=== PATIENT | female | born 1970 | race Caucasian/White ===

== ENCOUNTER 2020-06-25 00:17 | Outpatient (CLI) | payer BC, SELFPAY ==
[2020-06-25 17:08] LABS: SARS-CoV-2 RNA PCR Negative
== END 2020-06-25 00:18 | disposition home or self-care (01) ==
LOC: ANHCOVIDDT 00:17
PROVIDERS: PCP Nurse Practitioner Family; Visit Provider Obstetrics & Gynecology
DX: Z01.812 Encounter for preprocedural laboratory examination (principal); Z11.59 Encounter for screening for other viral diseases
CPT/HCPCS: 87635; C9803; U0003

== ENCOUNTER 2020-06-28 01:04 | Day surgery (SDC) | payer BC, SELFPAY ==
[2020-06-17 11:38] VITALS: BMI 30.5
--- NOTE | 2020-06-25 16:36 | PM.IMHP ---
H&P: HPI History of Present Illness Date/Time: 06/25/20 16:36 Chief complaint: simple endometrial hyperplasia, menomettrohaghia Narrative: Jazz Torres is a 50 year old female with endometrial hyperplasia originally diagnosed in 2019 but never treated other than 10 days of provera one time. She had repeat EMBX showing persistent endometrial hyperplasia and has had heavy irregular bleeding off and on Review of Systems Review of Systems: All systems reviewed & are unremarkable except as noted in HPI and below PMFSH Past Medical History Medical History Bicornate uterus Breast cancer Menopausal state Normal vaginal delivery of third Surgical History Surgical History H/O breast surgery H/O tubal ligation Family History Family History Father Heart disease Acute myocardial infarction Social History Social History Smoking status: Never smoker Alcohol intake: current Drinks per week: 10 Substance use: never Spiritual care concerns: No Meds Home Medications and Allergies Home Medications Medication Instructions Recorded Confirmed Type lorazepam 0.5 mg tablet 0.5 mg PO DAILY PRN 05/13/20 06/17/20 History lubiprostone 24 mcg capsule 24 mcg PO DAILY 05/13/20 06/17/20 History sertraline 100 mg tablet 100 mg PO DAILY 05/13/20 06/17/20 History ergocalciferol (vitamin D2) 1,250 mcg PO WEEKLY 06/17/20 06/17/20 History [Vitamin D2] Allergies Allergy/AdvReac Type Severity Reaction Status Date / Time codeine Allergy Intermediate hives Verified 06/17/20 11:38 Penicillins Allergy Intermediate Hives Verified 06/17/20 11:38 Exam Const: General: no acute distress Resp: Auscultation: clear to auscultation bilaterally Cardio: Rate: regular rate Rhythm: regular rhythm GI: Inspection: non-distended GI Palp: Yes Soft to palpation and No Tenderness to palpation present (GI) : Other: Uterus normal size, nontender, mobile smooth. Adnexa nontender with no palpable masses Psych: Mental Status: mental status grossly normal Assessment and Plan Assessment and plan (1) Endometrial hyperplasia without atypia: Code(s): N85.00 - Endometrial hyperplasia, unspecified Status: Acute Assessment and Plan: She opted and signed consent for TLH/BSO after R/B/C/A discussed. She expressed understanding and wishes to proceed (2) Menorrhagia: Code(s): N92.0 - Excessive and frequent menstruation with regular cycle Status: Acute
[2020-06-28] VITALS (11 sets, daily range): BP systolic 119–140; BP diastolic 74–90; PULSE 53–95; RESP 11–18; TEMP 36.1–36.7; O2SAT 95–100
[2020-06-28] MEDS: LACTATED RINGERS 1,000 ML 30 ML IV CONT ×2 (10:27→14:38)
[2020-06-28] MEDS: ACETAMINOPHEN 500 MG TABLET 1000 MG PO (10:27)
[2020-06-28] MEDS: KETOROLAC 15 MG/ML VIAL (*BKC) IV PUSH (10:29)
--- NOTE | 2020-06-28 11:02 | WPDANESEPPF ---
Anes - Initial Pre Proc Eval Procedure: Operation Date: 06/28/20 12:00 Proposed Procedures p Total Laparoscopic Hysterectomy, Bilateral Salpingo-Oophorectomy - Johanne Head MD Date/Time: 06/28/20 11:02 Surgeon: Johanne Head MD Pre Op Diagnosis: simple endometrial hyperplasia, menomettrohaghia Patient Data Age: 50 Gender: F Height: 5 ft 7 in Weight: 88.7 kg Last Vital Signs Temp 97 F L 06/28/20 10:12 Pulse 79 06/28/20 10:12 Resp 16 06/28/20 10:12 BP 140/86 06/28/20 10:12 Pulse Ox 99 06/28/20 10:12 Allergies Allergy/AdvReac Type Severity Reaction Status Date / Time codeine Allergy Intermediate hives Verified 06/28/20 10:06 Penicillins Allergy Intermediate Hives Verified 06/28/20 10:06 Home Medications Medication Instructions Recorded Confirmed Type lorazepam 0.5 mg tablet 0.5 mg PO DAILY PRN 05/13/20 06/28/20 History lubiprostone 24 mcg capsule 24 mcg PO DAILY 05/13/20 06/28/20 History sertraline 100 mg tablet 100 mg PO DAILY 05/13/20 06/28/20 History ergocalciferol (vitamin D2) 1,250 mcg PO WEEKLY 06/17/20 06/28/20 History [Vitamin D2] Patient hx anesthesia problems: none Family hx anesthesia problems: none PMFSH Past Medical History Medical History Bicornate uterus Breast cancer Menopausal state Normal vaginal delivery of third Surgical History Surgical History H/O breast surgery H/O tubal ligation Family History Family History Father Heart disease Acute myocardial infarction Social History Social History Smoking status: Never smoker Alcohol intake: current Drinks per week: 7 Substance use: never Spiritual care concerns: No Anes - Eval Final PreProcedure Day of Procedure 06/28/20 11:02 Patient weight: overweight Heart: regular rate and rhythm Lungs: clear to auscultation Airway: Mallampati scale class II Neurological: alert and oriented Last oral intake: >/= 8 hours ASA classification: III Emergent: no Anesthetic plan: proceed Anesthesia type and monitoring: general ETT and standard monitoring Informed Consent: The patient's anesthetic plan and its attendant risks and benefits were discussed with the patient/family/POA. Questions were solicited and answers provided to the satisfaction of the patient/family/POA.
--- NOTE | 2020-06-28 11:53 | WPDHPUPDATE1 ---
History and Physical Update Update Date/Time: 06/28/20 11:53 History and Physical has been reviewed, including an updated exam of the patient. There are NO changes in the patient's condition. Risks, benefits, and alternatives have been discussed and questions answered. Patient agrees to proceed with procedure.
[2020-06-28] MEDS: CLINDAMYCIN 900 MG/NS 50 ML 900 MG/50 ML PIGGYBACK 50 MG IVPB (12:06)
[2020-06-28] MEDS: GENTAMICIN SULFATE INJ 360 MG in DEXTROSE 5% 100 ML 100 MG IVPB (12:19)
[2020-06-28] MEDS: BUPIVACAINE/EPINEPHRINE 0.5% 30 ML VIAL INFILTRATE (13:27)
[2020-06-28] MEDS: fentaNYL CITRATE INJ (*CRX) 100 MCG/2 ML VIAL 25 MCG IV PUSH ×4 (14:43→15:09)
--- NOTE | 2020-06-28 14:43 | PM.PROC ---
Procedure Note - Detailed Date of procedure: 06/28/20 Pre-op diagnosis: simple endometrial hyperplasia, menomettrohaghia simple endometrial hyperplasia, menometrorrhagia Post-op diagnosis: same Procedure performed: TLH/BSO Description of procedure: She was taken to the operating room where general anesthesia was obtained. She was prepared and draped in a normal sterile fashion in dorsal lithotomy position. Marcaine was injected infraumbilically and a 5 mm skin incision was made in the infraumbilical fold with a scalpel. 5 mm non bladed trocar was placed with the camera in the trocar under direct visualization. Insufflation was begun and she was placed in Trendelenburg 10 mm trocar was then placed in the right lower quadrant under direct visualization. A 5 mm trocar specimen left lower quadrant under direct visualization. Inspection of pelvis revealed the findings as noted above. The right fallopian tube was grasped for traction and the right infundibulopelvic ligament was grasped coagulated and transected using the Harmonic scalpel. Medial salpinx was serially clamped and transected. The right round ligament was coagulated and transected. The bladder flap was then created from the right side. Attention was then turned to left where the left infundibulopelvic ligament was grasped coagulated and transected. The mesosalpinx was serially clamped and transected as was the left round ligament. Bladder flap was then created from left side meeting flap from the right side. Bladder flap was pushed down further with the laparoscopic Kittner. The left uterine artery was skeletonized clamped coagulated and transected. There was brisk bleeding for a few seconds from the left uterine artery but it was controlled easily using the Harmonic scalpel. Another couple bites were taken down the broad ligament until the level of the uterosacral ligament had been reached. The right uterine artery was then skeletonized clamped coagulated and transected. Another few bites were taken down the broad ligament until the level of the uterosacral ligament had been reached. A sponge stick was placed in the vagina and pressed against the anterior cul-de-sac. The Harmonic scalpel was used to make an anterior colpotomy incision against sponge stick. The vagina was then circumferentially incised hugging against cervix until the entire cervix and uterus were free from the surrounding vaginal tissue. Attention was then turned to the vagina where a speculum was placed. The cervix was grasped with a single-tooth tenaculum. The uterus, cervix, tubes, and ovaries were all brought easily through the vaginal incision. A moist blue towel was placed in the vagina to help hold the pneumoperitoneum. Attention was then turned back to the abdomen. The vaginal cuff was closed using 0 Vicryl interrupted sutures placed laparoscopically. A total of 4 sutures were placed for reapproximation. The pelvis was copiously irrigated. All operative sites were found to be hemostatic. The right lower quadrant trocar was removed. The Vince-Mary device along with an 0 Vicryl was used to close the fascia of the right lower quadrant incision. The pneumoperitoneum was allowed to escape. All trocars were removed. All skin incisions were closed using 4 0 Monocryl in subcuticular fashion. She tolerated the procedure well. Sponge, lap, needle, and instrument counts were correct x2. She was taken to the recovery room in stable condition. Anesthesia: GETA Surgeon: Johanne Head MD Estimated blood loss (mL): 100 Drains: Yes (Nam) Packing: No Pathology: yes Complications: No immediate complications Condition: stable Disposition: PACU Findings: Normal uterus, tubes, ovaries, liver. No pelvic adhesions. Appendix and gall bladder not visualized
--- NOTE | 2020-06-28 14:48 | SUR.OPER ---
EBL:CC< URINE:
--- NOTE | 2020-06-28 15:32 | PC.NURSE ---
Patient arrived to room 289 by stretcher at 1532 from surgery department. Patient oriented to room and admission packet given. Discussed plan of care. Patient verbalized understanding.
[2020-06-28] MEDS: DOCUSATE SODIUM 100 MG CAPSULE PO (16:29)
[2020-06-28] MEDS: HYDROcodone/acetaminophen (*CRX) 5-325 MG TABLET 1 TAB PO ×3 (16:29→23:06)
[2020-06-28] MEDS: SIMETHICONE 80 MG TAB.CHEW PO ×2 (18:56→23:07)
[2020-06-28] MEDS: IBUPROFEN 600 MG TABLET PO (18:56)
[2020-06-28] MEDS: ENOXAPARIN 40 MG/0.4 ML SYRINGE SUB-Q (19:44)
[2020-06-29] MEDS: SIMETHICONE 80 MG TAB.CHEW PO ×3 (01:05→08:36)
[2020-06-29] MEDS: IBUPROFEN 600 MG TABLET PO (01:05)
[2020-06-29] MEDS: HYDROcodone/acetaminophen (*CRX) 5-325 MG TABLET 1 TAB PO ×2 (03:47→06:47)
[2020-06-29 03:54] VITALS: BP 144/74; PULSE 74; RESP 16; TEMP 36.5
[2020-06-29 05:12] LABS: Basophils Percent Auto 0.1 % (0.2-1.2); Hematocrit 33.9 % (37.0-47.0); Hemoglobin 10.8 g/dL (12.0-15.0); Immature Granulocyte Absolute 0.04 K/mm3 (0.00-0.031); Immature Granulocyte Percent A 0.5 % (0-0.5); Lymphocytes Absolute Auto 0.99 K/mm3 (0.9-3.2); Lymphocytes Percent Auto 11.4 % (18.3-44.2); Mean Corpuscular HGB Conc 31.9 g/dl (32-36); Mean Corpuscular Hemoglobin 27.8 pg (26-34); Mean Corpuscular Volume 87.1 fl (80-100); Mean Platelet Volume 10.1 fl (7.4-10.4); Monocytes Absolute Auto 0.4 K/mm3 (0.1-0.6); Monocytes Percent Auto 4.6 % (2.6-8.5); Neutrophils Absolute Auto 7.2 K/mm3 (1.3-6.7); Neutrophils Percent Auto 83.4 % (45.5-73.1); Platelet Count Result 256 k/mm3 (150-375); Red Blood Count 3.89 M/mm3 (4.2-5.4); Red Cell Distribution Width 14.1 % (11.5-14.5); White Blood Count 8.7 K/mm3 (4.5-10.0)
[2020-06-29 05:22] LABS: Anion Gap 3 mmol/L (8-16); Blood Urea Nitrogen 7 mg/dL (7-17); Calcium 8.6 mg/dL (8.4-10.2); Carbon Dioxide 25 mmol/L (22-30); Chloride 107 mmol/L (98-107); Estimated CRCL calculation 93 ml/min; Estimated Glomerular Filt Rate > 60; Glucose 135 mg/dL (65-105); Potassium 3.5 mmol/L (3.4-5.0); Sodium 135 mmol/L (137-145)
[2020-06-29 06:50] VITALS: BP 132/81; PULSE 71; RESP 16; TEMP 36.9
--- NOTE | 2020-06-29 07:44 | PM.GYNPNOP ---
CONTROL PANEL TESTER - A/P Postoperative Procedures: Procedures Operation Date: 06/28/20 12:00 Actual Procedures Side Surgeon p Total Laparoscopic Hysterectomy, Bilateral Salpingo-Oophorectomy Bilateral Johanne Head MD Postoperative day: 1 (s/p hysterectomy) Postoperative status: doing well Postoperative plan: routine post-op care and discharge (and follow up in office in 1 week) Time Spent With Patient Time: Total time spent is greater than 50% in coordination of care (as documented) at patient's floor/unit and/or counseling patient: Time with patient: less than 15 minutes CONTROL PANEL TESTER- PN:Subj Post-Op Subjective Date/time seen: 06/29/20 07:44 Subjective: patient has no complaints, pain is well controlled and other (Tolerating regular diet. + flatus. Voiding without problems) Exam Const: General: no acute distress Resp: Auscultation: clear to auscultation bilaterally Cardio: Rate: regular rate Rhythm: regular rhythm GI: Inspection: non-distended and incision (Intact without erythema, drainage, or induration) GI Palp: Yes abdominal tenderness (appropriate) and Yes Soft to palpation Extrem: General: no edema CONTROL PANEL TESTER - PN: Obj Data Vital Signs Vital Signs: Vital Signs - 24 hr 06/28/20 10:12 06/28/20 14:38 06/28/20 14:50 Temperature 36.1 C L Pulse Rate 79 63 53 L Respiratory Rate 16 17 11 L Blood Pressure 140/86 124/74 119/74 Pulse Oximetry 99 100 100 06/28/20 15:05 06/28/20 15:20 06/28/20 15:45 Temperature 36.7 C Pulse Rate 58 L 62 70 Respiratory Rate 12 14 16 Blood Pressure 132/79 135/82 134/83 Pulse Oximetry 96 95 95 06/28/20 16:00 06/28/20 16:30 06/28/20 17:00 Temperature 36.3 C L Pulse Rate 67 86 84 Respiratory Rate 16 16 16 Blood Pressure 128/80 137/77 138/90 Pulse Oximetry 97 97 06/28/20 18:47 06/28/20 23:13 06/29/20 03:54 Temperature 36.3 C L 36.6 C 36.5 C Pulse Rate 95 81 74 Respiratory Rate 18 16 16 Blood Pressure 126/80 129/84 144/74 H Pulse Oximetry 100 100 06/29/20 06:50 Temperature 36.9 C Pulse Rate 71 Respiratory Rate 16 Blood Pressure 132/81 Pulse Oximetry Intake/Output Intake/Output: Intake & Output 06/26/20 06/27/20 06/28/20 06/29/20 23:59 23:59 23:59 23:59 Intake Total 2100 300 Output Total 3540 1300 Balance -1440 -1000 Meds/Results Medications: Active Medications Generic Name Dose Route Start Last Admin Trade Name Freq PRN Reason Stop Dose Admin Hydrocodone Bitart/Acetaminophen 1 tab 06/28/20 15:24 06/29/20 06:47 [employer] 5-325 Mg PO 1 tab Q3H PRN Administration Pain Rated 5 or Less Bisacodyl 10 mg 06/28/20 15:24 Dulcolax Suppository RECTAL ONCE PRN Constipation Docusate Sodium 100 mg 06/28/20 17:00 06/28/20 16:29 Colace Capsule PO 100 mg BID HAYLEE Administration Enoxaparin Sodium 40 mg 06/28/20 20:00 06/28/20 19:44 Lovenox SUB-Q 40 mg DAILY HAYLEE Administration Ergocalciferol 50,000 unit 06/28/20 09:00 Drisdol PO Mo@0900 HAYLEE Ibuprofen 600 mg 06/28/20 15:24 06/29/20 01:05 Motrin PO 600 mg Q6H PRN Administration Cramping Lorazepam 0.5 mg 06/28/20 15:24 Ativan Tablet PO DAILY PRN Anxiety Lubiprostone 24 mcg 06/29/20 09:00 Amitiza PO DAILY [facility] Sertraline HCl 100 mg 06/29/20 09:00 Zoloft PO DAILY [facility] Simethicone 80 mg 06/28/20 15:24 06/29/20 03:48 Mylicon PO 80 mg Q2H PRN Administration Gas Labs CBC & Chem 7: 06/29/20 05:03 06/29/20 05:03 Labs: Laboratory Results - last 24 hr 06/29/20 06/29/20 05:03 05:03 WBC 8.7 RBC 3.89 L Hgb 10.8 L Hct 33.9 L MCV 87.1 MCH 27.8 MCHC 31.9 L RDW 14.1 Plt Count 256 MPV 10.1 Immature Gran % (Auto) 0.5 Neut % (Auto) 83.4 H Lymph % (Auto) 11.4 L [place] % (Auto) 4.6 Eos % (Auto) 0.0 Baso % (Auto) 0.1 L Lymph # (Auto) 0.99 [place] # (Auto) 0.4 Eos # (Auto) 0.0 Baso # (Auto) 0.0 Abs Immat G
--- NOTE | 2020-06-29 07:45 | P.DS_ITS ---
DS: Admitting Diagnosis Admitting Diagnosis Admitting Diagnosis: simple endometrial hyperplasia, menomettrohaghia DS: Discharge Diagnosis Discharge Diagnosis (1) Endometrial hyperplasia without atypia: Code(s): N85.00 - Endometrial hyperplasia, unspecified Status: Acute DS: Summary Status at Discharge Functional status at discharge: independent ambulation Overall status at discharge: patient is progressing back to baseline Time Spent with Patient Time attestation: Total time spent providing and/or coordinating discharge services: Time spent: Less than 30 minutes DS: Data Data Completed and Pending Pending studies at discharge: Pending at discharge 06/28/20 14:02 Surgical [PTH] Routine Labs on day of discharge: Labs from last 24 hours 06/29/20 06/29/20 05:03 05:03 WBC 8.7 RBC 3.89 L Hgb 10.8 L Hct 33.9 L MCV 87.1 MCH 27.8 MCHC 31.9 L RDW 14.1 Plt Count 256 MPV 10.1 Immature Gran % (Auto) 0.5 Neut % (Auto) 83.4 H Lymph % (Auto) 11.4 L [place] % (Auto) 4.6 Eos % (Auto) 0.0 Baso % (Auto) 0.1 L Lymph # (Auto) 0.99 [place] # (Auto) 0.4 Eos # (Auto) 0.0 Baso # (Auto) 0.0 Abs Immat Gran (auto) 0.04 H Absolute Neuts (auto) 7.2 H Absolute Nucleated RBC 0.0 Nucleated RBC % 0.0 Sodium 135 L Potassium 3.5 Chloride 107 Carbon Dioxide 25 Anion Gap 3 L BUN 7 Creatinine 0.70 Estim Creat Clear Calc 93 Estimated GFR > 60 Glucose 135 H Calcium 8.6 Discharge Plan Discharge Attending physician on discharge: Johanne Head Discharging Clinician: Johanne Head Patient Disposition: Home, Self-Care Activity: may shower and pelvic rest Diet: regular Wound Care Instructions: incision open to air Patient Instructions: Antibiotic Form Stand Alone Forms: General Discharge Information Follow-up/Referrals: Johanne Head MD [Physician] - 1 Week Discharge Medications: New hydrocodone-acetaminophen 5-325 mg Tablet 1 tab PO Q4H PRN (Reason: Pain Rated 5 Or Less) Qty: 30 RF: 0 ibuprofen 600 mg Tablet 600 mg PO Q6H PRN (Reason: Cramping) Qty: 60 RF: 0 Continued lorazepam 0.5 mg tablet 0.5 mg PO DAILY PRN (Reason: Anxiety) RF: 0 sertraline 100 mg tablet 100 mg PO DAILY RF: 0 Amitiza 24 mcg capsule 24 mcg PO DAILY RF: 0 ergocalciferol (vitamin D2) [Vitamin D2] 1,250 mcg (50,000 unit) Capsule 1,250 mcg PO WEEKLY RF: 0 Date of admission: 06/28/20 15:24 Primary Care Provider: TalibDione Admitting Provider: Johanne Head Attending physician on admission: Johanne Head Quality VTE Prophylaxis VTE prophylaxis: mechanical ordered and pharmacologic ordered
[2020-06-29] MEDS: DOCUSATE SODIUM 100 MG CAPSULE PO (08:36)
[2020-06-29] MEDS: ERGOCALCIFEROL 50,000 UNIT CAPSULE 50000 UNITS PO (08:36)
[2020-06-29] MEDS: SERTRALINE HCL 50 MG TABLET 100 MG PO (08:38)
[2020-06-29] MEDS: ENOXAPARIN 40 MG/0.4 ML SYRINGE SUB-Q (08:39)
== END 2020-06-29 07:46 | disposition home or self-care (01) ==
LOC: ANHSURGERY 09:50 → ANHOB2 06-29 07:47
PROVIDERS: PCP Nurse Practitioner Family; Visit Provider Obstetrics & Gynecology
PROC: 0UT9FZZ Resection of Uterus, Via Natural or Artificial Opening With Percutaneous Endoscopic Assistance (ICD-10-PCS; CPT 58571; principal; 2020-06-28 12:00)
DX: N85.01 Benign endometrial hyperplasia (principal); N83.8 Other noninflammatory disorders of ovary, fallopian tube and broad ligament; N73.6 Female pelvic peritoneal adhesions (postinfective); N92.4 Excessive bleeding in the premenopausal period; Z98.51 Tubal ligation status; Z85.3 Personal history of malignant neoplasm of breast; E66.9 Obesity, unspecified; Z68.30 Body mass index [BMI] 30.0-30.9, adult; Q51.3 Bicornate uterus
CPT/HCPCS: 58571; 36415; 80048; 85025; 88307; 99199; A9270; J1100; J1580; J1650; J1885; J2001; J2250; J2370; J2405; J2710; J3010; J7120

== ENCOUNTER 2020-10-21 18:07 | Emergency (ER) | payer BC, SELFPAY ==
--- NOTE | 2020-10-21 18:10 | ED.GENADULT ---
HPI - General Adult General Chief complaint: Skin/Abscess/Foreign Body Stated complaint: rash on legs Time Seen by Provider: 10/21/20 18:10 Source: patient Mode of arrival: ambulatory Limitations: no limitations History of Present Illness HPI narrative: 50-year-old female patient presents to the [facility] with complaints of a rash to bilateral lower extremities that go from the hips all the way down to the ankles. Patient states rash has been there for about 1 week and states it is extremely itchy. Patient states she has been using oral Benadryl as well as calamine lotion to the area. Patient states that she has only 1 in her household that has this rash. Patient states that she has a dog but is typically an inside dog. Patient states that she recently got a new mattress. Denies any chest pain, shortness of breath, swelling. Patient denies any new lotions soaps or detergents. Related Data Home Medications Medication Instructions Recorded Confirmed lorazepam 0.5 mg tablet 0.5 mg PO DAILY PRN 05/13/20 10/21/20 sertraline 100 mg tablet 100 mg PO DAILY 05/13/20 10/21/20 lubiprostone [Amitiza] 8 mcg PO DAILY 10/21/20 10/21/20 Allergies Allergy/AdvReac Type Severity Reaction Status Date / Time codeine Allergy Intermediate hives Verified 10/21/20 18:19 Penicillins Allergy Intermediate Hives Verified 10/21/20 18:19 Review of Systems Review of Systems: Narrative: CONSTITUTIONAL: Denies fever, chills, or sweats. EYES: Denies visual changes, redness, or discharge. ENT: Denies rhinorrhea, congestion, sore throat, or otalgia. CARDIOVASCULAR: Denies chest pain, palpitations, or edema. RESPIRATORY: Denies cough or dyspnea. GASTROINTESTINAL: Denies abdominal pain, nausea, vomiting, or diarrhea. GENITOURINARY: Denies dysuria or hematuria. SKIN: Positive rash with itching to bilateral lower extremities x1 week MUSCULOSKELETAL: Denies back pain, joint pain, or myalgia. NEUROLOGIC: Denies headache, numbness, or weakness. PSYCHIATRIC: Denies anxiety or depression. [facility] Past Medical History Medical History Bicornate uterus Breast cancer Menopausal state Vaginal delivery 06-16-87, , full term, male, 6#12 06-29-89, , full term, female, 7#3 06-07-94, , full term, male, 9#5 Surgical History Surgical History H/O breast surgery H/O tubal ligation History of bilateral salpingo-oophorectomy 06-28-20 History of hysterectomy 06-28-20 Family History Family History Father Heart disease Acute myocardial infarction Social History Social History Smoking status: Never smoker Alcohol intake: current Drinks per week: 7 Substance use: never Spiritual care concerns: No Comments At the time of my signature I agree with nursing past medical history, surgical, social, and family history. There is no relevant family history pertinent to the presenting complaint. Exam Narrative: Exam Narrative: GENERAL: Well-appearing, well-nourished, and in no acute distress. HEAD: Normocephalic, atraumatic. EYES: PERRLA and EOMI. ENT: Nares clear, no rhinorrhea or epistaxis. Mucous membranes moist. NECK: Supple. No lymphadenopathy CHEST: Clear to auscultation. No respiratory distress. HEART: Regular rate and rhythm. No murmur heard. Normal peripheral pulses. ABDOMEN: Soft, nontender, nondistended, normal active bowel sounds. EXTREMITIES: Normal range of motion. No edema. SKIN: Warm, dry, patient has a very small pimple-like rash noted to various areas of the bilateral lower extremities go from the ankle all the way up to the thighs. There is no open wounds or discharge but there is some scabbing to the areas in certain areas. No erythemic base. Rash is flat not raised. NEURO: No focal deficits. Alert and oriented x3.
[2020-10-21 18:15] VITALS: BP 146/87; PULSE 84; RESP 20; TEMP 36.6; O2SAT 100
== END 2020-10-21 18:33 | disposition home or self-care (01) ==
PROVIDERS: Emergency Provider Nurse Practitioner Family; PCP Internal Medicine
DX: S80.862A Insect bite (nonvenomous), left lower leg, initial encounter (principal); S80.861A Insect bite (nonvenomous), right lower leg, initial encounter; W57.XXXA Bitten or stung by nonvenomous insect and other nonvenomous arthropods, initial encounter; Z85.3 Personal history of malignant neoplasm of breast
CPT/HCPCS: 99213; G0463

== ENCOUNTER 2023-12-21 13:22 | Emergency (ER) | payer OTHER, SELFPAY ==
--- NOTE | ~2023-12-21 | XR_ITS ---
EXAMINATION: XR ankle RT min 3V DATE: 12/21/2023 14:01 INDICATION: Right ankle inversion injury and swelling. TECHNIQUE: 4 views of right ankle were obtained. COMPARISON: None. FINDINGS: There is a comminuted fracture of distal tip of fibula. The main distal fracture fragment d emonstrates 3 mm lateral displacement. There is an osteochondral lesion of lateral talar dome. There is mild midfoot osteoarthritis. There are enthesophytes at the posterior and plantar aspects of calca aicha tuberosity. Ankle soft tissue swelling is noted. IMPRESSION: 1. Comminuted fracture of distal tip of fibula. 2. 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 Reviewed, dictated and finalized at location A. IMPRESSION: 1. Comminuted fracture of distal tip of fibula. 2. Polyarticular osteoarthritis including an osteochondral lesion of lateral ta lar dome.
--- NOTE | ~2023-12-21 | XR_ITS ---
EXAMINATION: XR elbow LT min 3V DATE: 12/21/2023 14:02 INDICATION: Posterior left elbow pain post fall TECHNIQUE: Anteroposterior, two oblique and lateral views of the left elbow were obtained. COMPARISON: None. FINDINGS: Subtle linear lucency with nearly indiscernible lucency step-off along the articular cortex at the le ft radial head consistent with nondisplaced fracture. There is an associated small joint effusion wit h displacement of the anterior fat pad. Alignment remains essentially anatomic. No other fractures id entified. Joint spaces are normal. IMPRESSION: 1. Nondisplaced intra-articular fracture at the left radial head. Reviewed, dictated and finalized at location B.
[2023-12-21 13:31] VITALS: BP 159/90; PULSE 83; RESP 16; TEMP 36.3; O2SAT 99
--- NOTE | 2023-12-21 13:41 | ED.UPPEXIN ---
HPI - Extremity Injury (Upper) General Chief Complaint: Extremity Injury, Lower Stated Complaint: Right ankle/left arm injury Time Seen by Provider: 12/21/23 13:42 Source: patient Mode of arrival: ambulatory Limitations: no limitations History of Present Illness HPI narrative: 53 y/o female presented for c/o right ankle pain and swelling and left elbow pain after a fall today. States she stepped onto a piece of brick and twisted the ankle which caused her to fall onto the left arm. Endorses decreased ROM to the ankle due to pain. Reports almost full ROM to the elbow but reports pain with twisting movement. Denies any deformity, numbness, tingling or weakness of the extremities. Related Data Allergies Allergy/AdvReac Type Severity Reaction Status Date / Time codeine Allergy Intermediate hives Verified 12/21/23 13:37 Penicillins Allergy Intermediate Hives Verified 12/21/23 13:37 Review of Systems Review of Systems: CONSTITUTIONAL: Denies body aches, fever, chills CARDIOVASCULAR: Denies chest pain, palpitations, or edema. RESPIRATORY: Denies cough or dyspnea. GASTROINTESTINAL: Denies abdominal pain, nausea, vomiting, or diarrhea. SKIN: Reports left elbow abrasion MUSCULOSKELETAL: Reports right ankle and left elbow pain Denies back pain, or myalgia. NEUROLOGIC: Denies headache, numbness, tingling, or weakness. All systems reviewed & are unremarkable except as noted in HPI and below PMFSH Past Medical History Medical History Bicornate uterus Breast cancer Menopausal state Vaginal delivery 06-16-87, , full term, male, 6#12 06-29-89, , full term, female, 7#3 06-07-94, , full term, male, 9#5 Surgical History Surgical History H/O breast surgery H/O tubal ligation History of bilateral salpingo-oophorectomy 06-28-20 History of hysterectomy 06-28-20 Family History Family History Father Heart disease Acute myocardial infarction Social History Social History Smoking status: Never smoker Alcohol intake: current Drinks per week: 10 Substance use: never Spiritual care concerns: No Comments At time of signature, I have reviewed and agree with nursing past medical, surgical, social and family history unless otherwise noted. Please see nursing chart for further information. There is no relevant family history pertinent to the presenting complaint Exam Narrative: GENERAL: Well-appearing CHEST: Speaks in full sentences. No respiratory distress. HEART: Regular rate and rhythm. Normal and equal peripheral pulses. EXTREMITIES: Left elbow has normal strength and sensation, slightly limited range of motion with full flexion/extension due to pain to posterior elbow with movement. Small left elbow abrasion. No swelling or ecchymosis, No point tenderness to olecranon. No skin tenting, or obvious deformity; alignment normal, pulse palpable and equal bilaterally, skin warm, dry, pink. Capillary refill less than 3 seconds. Left ankle has normal strength and sensation, with limited range of motion movement of ankle due to pain; TTP laterally. Moderate swelling to lateral malleolus. No ecchymosis. No skin tenting, or obvious deformity; pulse palpable and equal bilaterally, skin warm, dry, pink. Capillary refill less than 3 seconds. SKIN: Warm, dry, no rash. NEURO: Alert and oriented x3. PSYCH: Normal mood and affect Course Course Emergency Course: Patient is aware of diagnosis, understands and agrees to treatment plan. Anticipatory guidance given. Patient agrees to follow-up as directed and is aware of reasons to seek care at the emergency department. Portions of this record may have been created with voice recognition software Level of Care: Express Care Visit Vital Signs Nichole
== END 2023-12-21 15:13 | disposition home or self-care (01) ==
PROVIDERS: Emergency Provider Nurse Practitioner Family; PCP Internal Medicine
DX: S82.831A Other fracture of upper and lower end of right fibula, initial encounter for closed fracture (principal); S52.125A Nondisplaced fracture of head of left radius, initial encounter for closed fracture; Z85.3 Personal history of malignant neoplasm of breast; W18.30XA Fall on same level, unspecified, initial encounter
CPT/HCPCS: 29105; 29515; 73080; 73610; 99204; A4565; G0463